=== PATIENT | female | born 1990 | race Hispanic/Latino ===

== ENCOUNTER 2016-12-11 22:04 | Observation (INO) | payer BC, OTHER ==
--- NOTE | 2016-12-11 22:57 | ED PDOC ---
Arrival/HPI - General Historian: Patient - History of Present Illness Time/Duration: 24 hours <Niles Osman - Last Filed: 12/12/16 00:41> <Nicholas Beltre - Last Filed: 12/12/16 00:55> - General Chief Complaint: Bite Time Seen by Provider: 12/11/16 22:11 - History of Present Illness Narrative History of Present Illness (Text): 12/11/16 22:51 26 year old female with no significant past medical history presents with right wrist erythema and swelling. Patient reports waking up this morning at 10am noticed redness and swelling on her right wrist. Patient tried taking over the counter antihistamine without relief. The redness and swelling area continue to expand throughout to her fingers and forearm. Patient denies having pain or itchiness in the area. Two months prior, patient had similar symptoms on her ankle, but it resolved after taking antihistamine. Patient denies alcohol , tobacco, or drug use. She denies having allergies to food or medications. She further denies headache, fever, chills, shortness of breath, chest pain, nausea or vomiting. (Niles Osman) Past Medical History - Provider Review Nursing Documentation Reviewed: Yes - Past History Past History: No Previous - Psychiatric Hx Substance Use: No - Anesthesia Hx Anesthesia: Yes Hx Anesthesia Reactions: No Hx Malignant Hyperthermia: No <Niles Osman - Last Filed: 12/12/16 00:41> Family/Social History - Physician Review Nursing Documentation Reviewed: Yes Family/Social History: No Known Family HX Smoking Status: Never Smoked Hx Alcohol Use: Yes Frequency of alcohol use: Socially Hx Substance Use: No <Niles Osman - Last Filed: 12/12/16 00:41> Allergies/Home Meds <Niles Osman - Last Filed: 12/12/16 00:41> <Nicholas Beltre - Last Filed: 12/12/16 00:55> Allergies/Adverse Reactions: Allergies No Known Allergies Allergy (Verified 12/11/16 22:48) Home Medications: Home Meds Medication Instructions Recorded Confirmed No Known Home Med 12/11/16 12/11/16 Review of Systems - Physician Review All systems were reviewed & negative as marked: Yes - Review of Systems Constitutional: Normal. absent: Fatigue, Weight Change, Fevers Eyes: Normal. absent: Vision Changes, Photophobia ENT: Normal. absent: Hearing Changes, Rhinorrhea, Epistaxis Respiratory: Normal. absent: SOB, Cough, Wheezing Cardiovascular: Normal. absent: Chest Pain, Palpitations, Syncope Gastrointestinal: Normal. absent: Abdominal Pain, Diarrhea, Nausea, Vomiting Genitourinary Female: Normal. absent: Dysuria, Frequency Musculoskeletal: Normal, Joint Swelling (right wrist swelling). absent: Arthralgias, Back Pain, Neck Pain Skin: Other (left UE erythema and swelling). absent: Pruritis Neurological: Normal. absent: Headache, Dizziness Endocrine: Normal. absent: Diaphoresis Hemo/Lymphatic: Normal Psychiatric: Normal. absent: Anxiety, Depression <Niles Osman - Last Filed: 12/12/16 00:41> Physical Exam Vital Signs Reviewed: Yes Temperature: Afebrile Blood Pressure: Normal Pulse: Regular Respiratory Rate: Normal Appearance: Positive for: Well-Appearing, Non-Toxic, Comfortable Pain Distress: None Mental Status: Positive for: Alert and Oriented X 3 - Systems Exam Head: Present: Atraumatic, Normocephalic Pupils: Present: PERRL Extroacular Muscles: Present: EOMI Conjunctiva: Present: Normal Mouth: Present: Moist Mucous Membranes Neck: Present: Normal Range of Motion Respiratory/Chest: Present: Clear to Auscultation, Good Air Exchange. No: Respiratory Distress, Accessory Muscle Use Cardiovascular: Present: Regular Rate and Rhythm, Normal S1, S2. No: Murmurs Abdomen: Present: Normal Bowel Sounds. No: Tenderness, Distention, Peritoneal Signs Upper Extremity: Present: NORMAL PULSES, Swelling (right hand), Erythema (right hand), Neurovascularly Intact, Temperature Abnormalties (warm right hand), Other (3 small bumps on the medial side of right wrist). No: Tenderness Lower Extremity: Present: Normal Inspection. No: Edema Neurological: Present: GCS=15, CN II-XII Intact, Speech Normal Skin: Present: Warm, Dry, Other (erythematous and swelling on left hand extending up to forearm) Psychiatric: Present: Alert, Oriented x 3, Normal Insight, Normal Concentration <Niles Osman - Last Filed: 12/12/16 00:41> Medical Decision Making - Lab Interpretations I have reviewed the lab results: Yes <Niles Osman - Last Filed: 12/12/16 00:41> - Lab Interpretations I have reviewed the lab results: Yes <Nicholas Beltre - Last Filed: 12/12/16 00:55> ED Course and Treatment: 12/11/16 23:19 -CBC, CMP -Ice compression -reassess and disposition DDx: Cellulitis, Insect bite, allergic reaction 12/12/16 00:10 Patient's symptoms not improving. Blood culture, solu-medrol IV Abx and Benadryl ordered. 12/12/16 00:29 Discussed case with hospitalist Dr. Paez, agreed to med/surg observation. (Niles Osman) Impression: Pt seen and evaluated with behavioral medical director. Pt presented of some left wrist redness and swelling spreading up her forearm since this morning. Pt took anti- histamines at home without relief. Aware and agree with HPI, clinical findings, plan, and management. Plan: -- Labs -- Ice compress -- Reassess and disposition 12/12/16 00:[address] Paez, who is aware and agrees with plan. Accepts pt in to hospitalist service. Pt will go to [facility] observation for cellulitis and allergic reaction. residential sales executive notified. (Nicholas Beltre) - Lab Interpretations Lab Results: 12/11/16 23:20 12/11/16 23:20 Lab Results 12/11/16 23:20: Sodium 141, Potassium 3.6, Chloride 104, Carbon Dioxide 27, Anion Gap 14, BUN 14, Creatinine 0.5, Est GFR ( Amer) > 60, Est GFR (Non- Af Amer) > 60, Random Glucose 71, Calcium 8.7, Total Bilirubin 0.4, AST 19, ALT 23, Alkaline Phosphatase 51, Total Protein 7.3, Albumin 4.2, Globulin 3.1, Albumin/Globulin Ratio 1.4 12/11/16 23:20: WBC 9.2, RBC 4.43, Hgb 13.4, Hct 39.3, MCV 88.7, MCH 30.2, MCHC 34.1, RDW 13.2, Plt Count 230, MPV 11.4 H, Gran % 56.9, Lymph % (Auto) 32.1, [place] % (Auto) 7.3 H, Eos % (Auto) 3.5, Baso % (Auto) 0.2, Gran # 5.22, Lymph # 3.0, [place] # 0.7 H, Eos # 0.3, Baso # 0.02 - Medication Orders Current Medication Orders: Vancomycin HCl (Vancomycin 1gm) 1 gm in 250 mls @ 167 mls/hr IVPB STAT STA PRN Reason: Protocol Stop: 12/12/16 01:39 Discontinued Medications Diphenhydramine HCl (Benadryl) 25 mg IVP STAT STA Stop: 12/12/16 00:12 Piperacillin Sod/Tazobactam Sod (Zosyn 3.375 In Ns 100ml) 100 mls @ 200 mls/hr IVPB STAT STA PRN Reason: Protocol Stop: 12/12/16 00:38 Methylprednisolone (Solu-Medrol) 125 mg IVP STAT STA Stop: 12/12/16 00:11 - PA / SOUNDSCRIBER MECHANIC / Resident Statement GRACIELA has reviewed & agrees with the documentation as recorded. GRACIELA has examined the patient and agrees with the treatment plan. <Niles Osman - Last Filed: 12/12/16 00:41> - PA / SOUNDSCRIBER MECHANIC / Resident Statement GRACIELA has reviewed & agrees with the documentation as recorded. GRACIELA has examined the patient and agrees with the treatment plan. <Nicholas Beltre - Last Filed: 12/12/16 00:55> Disposition/Present on Arrival - Present on Arrival Any Indicators Present on Arrival: No History of DVT/PE: No History of Uncontrolled Diabetes: No Urinary Catheter: No History of Decub. Ulcer: No History Surgical Site Infection Following: None - Disposition Have Diagnosis and Disposition been Completed?: Yes Disposition Time: 00:27 Patient Plan: Observation <Niles Osman - Last Filed: 12/12/16 00:41> <Nicholas Beltre - Last Filed: 12/12/16 00:55> - Disposition Diagnosis: Cellulitis, Allergic reaction Disposition: HOSPITALIZED Patient Problems: Current Active Problems Problem Status Onset Cellulitis Acute Condition: STABLE Discharge Instructions (ExitCare): Cellulitis (ED) Referrals: Gustavo Abraham MD [Primary Care Provider] - Follow up with primary
[2016-12-11 23:44] LABS: ALB/GLOB RATIO 1.4 (1.1-1.8); ALBUMIN 4.2 g/dL (3.0-4.8); ALT/SGPT 23 U/L (7-56); AST/SGOT 19 U/L (15-39); BLOOD UREA NITROGEN 14 mg/dL (7-21); CALCIUM 8.7 mg/dL (8.4-10.5); GFR AFRICAN-AMERICAN > 60; GFR NON-AFRICAN AMERICAN > 60
[2016-12-11 23:45] LABS: BASO # 0.02 K/mm3 (0.0-2.0); BASO % 0.2 % (0.0-3.0); EOS # 0.3 (0.0-0.7); EOS % 3.5 % (1.5-5.0); GRAN # 5.22 (1.4-6.5); GRAN % 56.9 % (50.0-68.0); HEMOGLOBIN 13.4 gm/dL (12.0-16.0); LYMPH % 32.1 % (22.0-35.0); MEAN CELL VOLUME 88.7 fL (80.0-105.0); MEAN CORPUSCULAR HEMOGLOBIN 30.2 pg (25.0-35.0); MEAN CORPUSCULAR HGB CONC 34.1 g/dl (31.0-37.0); MEAN PLATELET VOLUME 11.4 fl (7.0-11.0); MONO # 0.7 (0.1-0.6); MONO % 7.3 % (1.0-6.0); PLATELET COUNT 230 10^3/uL (120.0-450.0); RBC 4.43 10^6/uL (3.5-6.1); RED CELL DISTRIBUTION WIDTH 13.2 % (11.5-14.5); WHITE BLOOD COUNT 9.2 10^3/ul (4.5-11.0)
[2016-12-12] MEDS ORDERED: Piperacillin/Tazobact 3.375 gm 100 ML IVPB STA (00:09)
[2016-12-12] MEDS ORDERED: Vancomycin 1gm in NS 250ml 1 GM/250 ML BAG IVPB STA (00:10)
[2016-12-12] MEDS ORDERED: DiphenhydrAMINE 50 mg/ml Inj IVP STA (00:11)
[2016-12-12] MEDS ORDERED: DiphenhydrAMINE 50 mg/ml Inj IVP PRN (01:15)
[2016-12-12] MEDS: Piperacillin/Tazobact 3.375 gm 100 ML IVPB SCH ×2 (06:17→11:36)
--- NOTE | 2016-12-12 06:30 | CP.PCM.HP ---
<TRISTIN BENITEZ - Last Filed: 12/12/16 06:19> History of Present Illness - History of Present Illness History of Present Illness: Tristin Mignon OHARA PGY1 - Internal Medicine H&P - Night Float Service CC: Insect bite, hand swelling HPI: 26 yo F with no PMH presented to [facility] ED complaining of a swollen and red hand after a presumed insect bite earlier in the day. Patient woke up 10AM with slight swelling of her R wrist, she did not see the insect that bit her, but saw the shahana on her skin. Swelling increased throughout the day. She tried taking an antihistamine, unsure exactly of the name, but did not notice any improvement. She now had swelling, redness streaking up to axilla, numbness, and difficulty flexing her right hand, but no pain. She denies any F/C, N/V/D/C , abdominal pain , CP, SOB, dyspnea, throat swelling, wheezing, tongue swelling. Denies any contacts with similar bites. PMH: None PSH: None Meds: None Soc: Denies tobacco. EtOH socially. Denies illicits Allergies: NKDA Present on Admission - Present on Admission Any Indicators Present on Admission: No History of DVT/PE: No Review of Systems - Constitutional Constitutional: absent: Anorexia, Chills, Fever, Headache - EENT Eyes: absent: Blurred Vision, Change in Vision Ears: absent: Decreased Hearing, Ear Pain, Tinnitus Nose/Mouth/Throat: absent: Epistaxis, Nasal Congestion, Odynophagia, Throat Swelling, Tongue Swelling - Cardiovascular Cardiovascular: absent: Chest Pain, Diaphoresis, Dyspnea, Leg Edema, Palpitations - Respiratory Respiratory: absent: Cough, Dyspnea, Stridor - Gastrointestinal Gastrointestinal: absent: Abdominal Pain, Constipation, Diarrhea - Genitourinary Genitourinary: absent: Dysuria - Musculoskeletal Musculoskeletal: absent: Arthralgias, Myalgias - Integumentary Integumentary: Changing Lesions, New Lesions, Rash, Swelling - Neurological Neurological: absent: Headaches - Psychiatric Psychiatric: absent: Behavioral Changes Past Patient History - Past Social History Smoking Status: Never Smoked - MUSCULOSKELETAL/RHEUMATOLOGICAL Hx Falls: No - PSYCHIATRIC Hx Substance Use: No - SURGICAL HISTORY Hx Surgeries: No - ANESTHESIA Hx Anesthesia: Yes Hx Anesthesia Reactions: No Hx Malignant Hyperthermia: No Meds Allergies/Adverse Reactions: Allergies Allergy/AdvReac Type Severity Reaction Status Date / Time No Known Allergies Allergy Verified 12/11/16 22:48 Physical Exam - Constitutional Appears: Non-toxic, No Acute Distress - Head Exam Head Exam: ATRAUMATIC, NORMOCEPHALIC - Eye Exam Eye Exam: EOMI, Normal appearance - ENT Exam ENT Exam: Mucous Membranes Moist - Neck Exam Neck exam: Positive for: Normal Inspection. Negative for: Lymphadenopathy - Respiratory Exam Respiratory Exam: Clear to Auscultation Bilateral. absent: Rales, Rhonchi, Wheezes - Cardiovascular Exam Cardiovascular Exam: RRR, +S1, +S2 - GI/Abdominal Exam GI & Abdominal Exam: Normal Bowel Sounds, Soft. absent: Tenderness - Extremities Exam Additional comments: RUE edema in hand, wrist, up to mid forearm. Erythema in hand and wrist, streaking erythema along ventral forearm to axilla. No axillary lymphadenopathy LUE normal - Back Exam Back exam: NORMAL INSPECTION - Neurological Exam Neurological exam: Alert, Oriented x3 - Psychiatric Exam Psychiatric exam: Normal Affect, Normal Mood - Skin Skin Exam: Dry, Intact Additional comments: See "Extremities exam" Results - Vital Signs Recent Vital Signs: Last Vital Signs Temp 98.1 F 12/12/16 01:45 Pulse 64 12/12/16 01:45 Resp 12 12/12/16 03:23 BP 115/52 L 12/12/16 01:45 Pulse Ox 99 12/12/16 01:45 - Labs Result Diagrams: 12/11/16 23:20 12/11/16 23:20 Assessment & Plan - Assessment and Plan (Free Text) Assessment: 26 yo F with no PMH presented with RUE swelling and erythema for the past day after a bug bite. Observe and treat for cellulitis. Plan: 1. RUE Cellulitis - Patient is afebrile with no leukocytosis. Arm is marked for extent of erythema. - Obtain blood culture, repeat CBC, CMP tomorrow - Start vancomycin and Zosyn - Continue to monitor clinically Patient seen, discussed, and reviewed with attending Dr. Paez <Luis Alfredo Paez - Last Filed: 12/18/16 03:55> Results - Vital Signs Recent Vital Signs: Last Vital Signs Temp 98.7 F 12/13/16 11:10 Pulse 90 12/13/16 11:10 Resp 20 12/13/16 11:10 BP 118/79 12/13/16 11:10 Pulse Ox 97 12/13/16 11:10 - Labs Result Diagrams: 12/13/16 06:00 12/13/16 06:00 Attending/Attestation - Attestation I have personally seen and examined this patient.: Yes I have fully participated in the care of the patient.: Yes I have reviewed all pertinent clinical information: Yes Notes (Text): 12/18/16 03:55 Agree with history, physical examination, assessment and plan.
[2016-12-12 07:57] LABS: GRAN # 7.68 (1.4-6.5); GRAN % 88.9 % (50.0-68.0); HEMOGLOBIN 14.5 gm/dL (12.0-16.0); LYMPH # 0.9 (1.2-3.4); LYMPH % 10.3 % (22.0-35.0); MEAN CELL VOLUME 88.1 fL (80.0-105.0); MEAN CORPUSCULAR HEMOGLOBIN 30.7 pg (25.0-35.0); MEAN CORPUSCULAR HGB CONC 34.9 g/dl (31.0-37.0); MEAN PLATELET VOLUME 11.7 fl (7.0-11.0); MONO # 0.1 (0.1-0.6); MONO % 0.8 % (1.0-6.0); PLATELET COUNT 217 10^3/uL (120.0-450.0); RBC 4.72 10^6/uL (3.5-6.1); RED CELL DISTRIBUTION WIDTH 13.1 % (11.5-14.5); WHITE BLOOD COUNT 8.6 10^3/ul (4.5-11.0)
[2016-12-12 08:28] LABS: ALB/GLOB RATIO 1.4 (1.1-1.8); ALBUMIN 4.1 g/dL (3.0-4.8); ALT/SGPT 25 U/L (7-56); AST/SGOT 18 U/L (15-39); BLOOD UREA NITROGEN 12 mg/dL (7-21); CALCIUM 8.6 mg/dL (8.4-10.5); GFR AFRICAN-AMERICAN > 60; GFR NON-AFRICAN AMERICAN > 60
[2016-12-12] MEDS ORDERED: Vancomycin 1gm in NS 250ml 1 GM/250 ML BAG IVPB SCH (10:00)
[2016-12-12 14:16] LABS: BARBITURATES, UR NEGATIVE (NEGATIVE); BENZODIAZEPINES, UR NEGATIVE (NEGATIVE); OPIATES, UR NEGATIVE (NEGATIVE); PHENCYCLIDINE, UR NEGATIVE (NEGATIVE)
[2016-12-12] MEDS: cefTRIAXone 1 gm 1 GM/100 ML BAG IVPB SCH (17:18)
[2016-12-13 07:10] LABS: BASO # 0.01 K/mm3 (0.0-2.0); BASO % 0.1 % (0.0-3.0); EOS # 0.2 (0.0-0.7); EOS % 2.1 % (1.5-5.0); GRAN # 5.69 (1.4-6.5); GRAN % 57.6 % (50.0-68.0); HEMOGLOBIN 12.5 gm/dL (12.0-16.0); LYMPH # 3.1 (1.2-3.4); LYMPH % 31.2 % (22.0-35.0); MEAN CELL VOLUME 88.5 fL (80.0-105.0); MEAN CORPUSCULAR HEMOGLOBIN 29.8 pg (25.0-35.0); MEAN CORPUSCULAR HGB CONC 33.7 g/dl (31.0-37.0); MEAN PLATELET VOLUME 11.6 fl (7.0-11.0); MONO # 0.9 (0.1-0.6); PLATELET COUNT 209 10^3/uL (120.0-450.0); RBC 4.19 10^6/uL (3.5-6.1); RED CELL DISTRIBUTION WIDTH 13.4 % (11.5-14.5); WHITE BLOOD COUNT 9.9 10^3/ul (4.5-11.0)
[2016-12-13 07:15] LABS: ALB/GLOB RATIO 1.3 (1.1-1.8); ALBUMIN 3.6 g/dL (3.0-4.8); ALT/SGPT 23 U/L (7-56); AST/SGOT 17 U/L (15-39); BLOOD UREA NITROGEN 15 mg/dL (7-21); CALCIUM 8.6 mg/dL (8.4-10.5); GFR AFRICAN-AMERICAN > 60; GFR NON-AFRICAN AMERICAN > 60
[2016-12-13] MEDS ORDERED: Potassium Chloride 40 mEq/30 ml LIQ UD PO STA (09:15)
[2016-12-13] MEDS ORDERED: Vancomycin 1gm in NS 250ml 1 GM/250 ML BAG IVPB SCH (10:00)
[2016-12-13] MEDS: cefTRIAXone 1 gm 1 GM/100 ML BAG IVPB SCH (10:26)
[2016-12-13 11:11] VITALS: BP 118/79; PULSE 90; RESP 20; TEMP 98.7; O2SAT 97
--- NOTE | 2016-12-13 11:58 | CP.PCM.CON ---
History of Present Illness - History of Present Illness History of Present Illness: 26 year old female with no significant past medical history came in to [facility] because of sudden onset of swelling and pain at the right wrist area associated with erythema, which apparently tracked up to her forearm. This started about 2 days ago, and she does not recall if something bit her. She denies specific animal contacts, no nausea or vomiting, no fever or chills, no diarrhea, no dysuria, no headache or dizziness. She took antihistamines which did not help. She was given antibiotics last night and this morning the swelling and pain are all gone. Infectious Diseases consult is requested to further evaluate and manage. Review of Systems - Review of Systems All systems: reviewed and no additional remarkable complaints except (as per HPI ) Past Patient History - Past Social History Smoking Status: Never Smoked - MUSCULOSKELETAL/RHEUMATOLOGICAL Hx Falls: No - PSYCHIATRIC Hx Substance Use: No - SURGICAL HISTORY Hx Surgeries: No - ANESTHESIA Hx Anesthesia: Yes Hx Anesthesia Reactions: No Hx Malignant Hyperthermia: No Meds Allergies/Adverse Reactions: Allergies Allergy/AdvReac Type Severity Reaction Status Date / Time No Known Allergies Allergy Verified 12/11/16 22:48 - Medications Medications: Current Medications Acetaminophen (Tylenol 325mg Tab) 650 mg PO Q6H PRN PRN Reason: pain Last Admin: 12/13/16 03:41 Dose: 650 mg Diphenhydramine HCl (Benadryl) 25 mg PO Q6 PRN PRN Reason: Itching / Pruritus Last Admin: 12/12/16 21:34 Dose: 25 mg Ceftriaxone Sodium (Rocephin 1 Gram Ivpb) 1 gm in 100 mls @ 100 mls/hr IVPB DAILY JEWEL PRN Reason: Protocol Last Admin: 12/12/16 17:18 Dose: 100 mls/hr Vancomycin HCl (Vancomycin 1gm) 1 gm in 250 mls @ 167 mls/hr IVPB Q12 JEWEL PRN Reason: Protocol Physical Exam - Constitutional Appears: Non-toxic, No Acute Distress - Head Exam Head Exam: NORMAL INSPECTION - ENT Exam ENT Exam: Mucous Membranes Moist - Neck Exam Neck exam: Negative for: Lymphadenopathy, Meningismus - Respiratory Exam Respiratory Exam: Decreased Breath Sounds - Cardiovascular Exam Cardiovascular Exam: +S1, +S2 - GI/Abdominal Exam GI & Abdominal Exam: Soft. absent: Tenderness - Extremities Exam Additional comments: right hand, arm without erythema, no swelling, no lymphadenopathy, no tenderness , no discharge Results - Vital Signs Recent Vital Signs: Last Vital Signs Temp 97.6 F 12/12/16 16:29 Pulse 73 12/12/16 16:29 Resp 18 12/12/16 16:29 BP 97/59 L 12/12/16 16:29 Pulse Ox 98 12/12/16 16:29 - Labs Result Diagrams: 12/13/16 06:00 12/13/16 06:00 Labs: Laboratory Results - last 24 hr 12/12/16 12/12/16 12/12/16 13:10 13:19 13:19 WBC RBC Hgb Hct MCV MCH MCHC RDW Plt Count MPV Gran % Lymph % (Auto) [place] % (Auto) Eos % (Auto) Baso % (Auto) Gran # Lymph # [place] # Eos # Baso # Sodium Potassium Chloride Carbon Dioxide Anion Gap BUN Creatinine Est GFR ( Amer) Est GFR (Non-Af Amer) Random Glucose Calcium Total Bilirubin AST ALT Alkaline Phosphatase Total Protein Albumin Globulin Albumin/Globulin Ratio Procalcitonin < 0.05 L Urine HCG, Qual Negative Urine Opiates Screen Negative Urine Methadone Screen Negative Ur Barbiturates Screen Negative Ur Phencyclidine Scrn Negative Ur Amphetamines Screen Negative U Benzodiazepines Scrn Negative U Oth Cocaine Metabols Negative U Cannabinoids Screen Negative 12/13/16 12/13/16 06:00 06:00 WBC 9.9 RBC 4.19 Hgb 12.5 Hct 37.1 MCV 88.5 MCH 29.8 MCHC 33.7 RDW 13.4 Plt Count 209 MPV 11.6 H Gran % 57.6 Lymph % (Auto) 31.2 [place] % (Auto) 9.0 H Eos % (Auto) 2.1 Baso % (Auto) 0.1 Gran # 5.69 Lymph # 3.1 [place] # 0.9 H Eos # 0.2 Baso # 0.01 Sodium 139 Potassium 3.4 L Chloride 106 Carbon Dioxide 24 Anion Gap 12 BUN 15 Creatinine 0.6 Est GFR ( Amer) > 60 Est GFR (Non-Af Amer) > 60 Random Glucose 92 Calcium 8.6 Total Bilirubin 0.4 AST 17 ALT 23 Alkaline Phosphatase 41 Total Protein 6.4 Albumin 3.6 Globulin 2.8 Albumin/Globulin Ratio 1.3 Procalcitonin Urine HCG, Qual Urine Opiates Screen Urine Methadone Screen Ur Barbiturates Screen Ur Phencyclidine Scrn Ur Amphetamines Screen U Benzodiazepines Scrn U Oth Cocaine Metabols U Cannabinoids Screen Assessment & Plan - Assessment and Plan (Free Text) Plan: Assessment S/P right hand, wrist, arm swelling, R/O cellulitis Plan Patient has been given Vancomycin and Rocephin; can be switched to PO Keflex and PO doxycycline with outpatient follow up with PMD
--- NOTE | 2016-12-13 18:36 | CP.PCM.DIS ---
<Demetri Irvin - Last Filed: 12/13/16 18:40> Provider - Provider Date of Admission: 12/12/16 00:27 Attending physician: Irvin Lloyd MD Primary care physician: Gusatvo Abraham MD Time Spent in preparation of Discharge (in minutes): 45 Hospital Course - Lab Results Lab Results: Micro Results 12/12/16 00:35 Blood Blood Culture - Preliminary NO GROWTH AFTER 24 HOURS Most Recent Lab Values WBC 9.9 10^3/ul (4.5-11.0) 12/13/16 06:00 RBC 4.19 10^6/uL (3.5-6.1) 12/13/16 06:00 Hgb 12.5 gm/dL (12.0-16.0) 12/13/16 06:00 Hct 37.1 % (36.0-48.0) 12/13/16 06:00 MCV 88.5 fL (80.0-105.0) 12/13/16 06:00 MCH 29.8 pg (25.0-35.0) 12/13/16 06:00 MCHC 33.7 g/dl (31.0-37.0) 12/13/16 06:00 RDW 13.4 % (11.5-14.5) 12/13/16 06:00 Plt Count 209 10^3/uL (120.0-450.0) 12/13/16 06:00 MPV 11.6 fl (7.0-11.0) H 12/13/16 06:00 Gran % 57.6 % (50.0-68.0) 12/13/16 06:00 Lymph % (Auto) 31.2 % (22.0-35.0) 12/13/16 06:00 [place] % (Auto) 9.0 % (1.0-6.0) H 12/13/16 06:00 Eos % (Auto) 2.1 % (1.5-5.0) 12/13/16 06:00 Baso % (Auto) 0.1 % (0.0-3.0) 12/13/16 06:00 Gran # 5.69 (1.4-6.5) 12/13/16 06:00 Lymph # 3.1 (1.2-3.4) 12/13/16 06:00 [place] # 0.9 (0.1-0.6) H 12/13/16 06:00 Eos # 0.2 (0.0-0.7) 12/13/16 06:00 Baso # 0.01 K/mm3 (0.0-2.0) 12/13/16 06:00 Sodium 139 mmol/L (132-148) 12/13/16 06:00 Potassium 3.4 mmol/L (3.6-5.0) L 12/13/16 06:00 Chloride 106 mmol/L (98-107) 12/13/16 06:00 Carbon Dioxide 24 mmol/L (21-33) 12/13/16 06:00 Anion Gap 12 (10-20) 12/13/16 06:00 BUN 15 mg/dL (7-21) 12/13/16 06:00 Creatinine 0.6 mg/dL (0.5-1.4) 12/13/16 06:00 Est GFR ( Amer) > 60 12/13/16 06:00 Est GFR (Non-Af Amer) > 60 12/13/16 06:00 Random Glucose 92 mg/dL (70-110) 12/13/16 06:00 Calcium 8.6 mg/dL (8.4-10.5) 12/13/16 06:00 Total Bilirubin 0.4 mg/dL (0.2-1.3) 12/13/16 06:00 AST 17 U/L (15-39) 12/13/16 06:00 ALT 23 U/L (7-56) 12/13/16 06:00 Alkaline Phosphatase 41 U/L (38-133) 12/13/16 06:00 Total Protein 6.4 g/dL (5.8-8.3) 12/13/16 06:00 Albumin 3.6 g/dL (3.0-4.8) 12/13/16 06:00 Globulin 2.8 gm/dL 12/13/16 06:00 Albumin/Globulin Ratio 1.3 (1.1-1.8) 12/13/16 06:00 Procalcitonin < 0.05 NG/ML (0.19-0.49) L 12/12/16 13:10 Urine HCG, Qual Negative (NEGATIVE) 12/12/16 13:19 Urine Opiates Screen Negative (NEGATIVE) 12/12/16 13:19 Urine Methadone Screen Negative (NEGATIVE) 12/12/16 13:19 Ur Barbiturates Screen Negative (NEGATIVE) 12/12/16 13:19 Ur Phencyclidine Scrn Negative (NEGATIVE) 12/12/16 13:19 Ur Amphetamines Screen Negative (NEGATIVE) 12/12/16 13:19 U Benzodiazepines Scrn Negative (NEGATIVE) 12/12/16 13:19 U Oth Cocaine Metabols Negative (NEGATIVE) 12/12/16 13:19 U Cannabinoids Screen Negative (NEGATIVE) 12/12/16 13:19 - Hospital Course Hospital Course: 26 yo F with no PMH presented to [facility] [place] ED complaining of a swollen and red hand after a presumed insect bite earlier in the day on 12/11/16. Patient woke up 10AM with slight swelling of her R wrist, she did not see the insect that bit her, but saw the shahana on her skin. Swelling increased throughout the day. She tried taking an antihistamine, unsure exactly of the name, but did not notice any improvement. She now had swelling, redness streaking up to axilla, numbness , and difficulty flexing her right hand, but no pain. She denied any F/C, N/V/D/ C, abdominal pain , CP, SOB, dyspnea, throat swelling, wheezing, tongue swelling. Denied any contacts with similar bites. She was seen again on , and further denied nausea or vomiting, no fever or chills, no diarrhea, no dysuria, no headache or dizziness. She was given antihistamines and Abx, and that morning the swelling and pain are all gone. Infectious Diseases consult was requested to further evaluate and manage, and when she was seen this morning (12/13/16), the infection had greatly resolved. - Date & Time of H&P Date of H&P: 12/12/16 Time of H&P: 06:20 Discharge Exam - Head Exam Head Exam: NORMAL INSPECTION - Additional Findings Additional findings: VS as below Constitutional: a&o x 4, nad Head and Neck: neck supple, no jvd, trachea midline, carotid midline, no cervical/head mass Eyes: terri, nonicteric sclera, eom intact ENT: auditory acuity grossly intact, throat not congested, no nasal deformity Cardio: rrr, no m/r/g, no carotid bruit, nml s1, s2 Pulm: no accessory muscle use, equal nml breath sounds bilaterally, ctab Abd:; s/nt/nd, nbs x 4 q, no palpable masses Derm: no rashes, no ulcers, no lesions Extr: no edema, no cyanosis, no calf tenderness, no lesions, no varicosities Neuro: cn II-XII grossly intact, muscle strength 5/5, no los, DTRs intact Discharge Plan - Discharge Medications Prescriptions: Amoxicillin/Clavulanate [Augmentin 875 MG-125 MG] 1 tab PO BID #14 tab Doxycycline Hyclate [Doryx] 100 mg PO Q12 #14 cap - Follow Up Plan Condition: STABLE Disposition: HOME/ ROUTINE Patient education suggested?: Yes Instructions: Cellulitis (DC), Cellulitis (GEN) Additional Instructions: 1. Follow up with PMD DR. Abraham in 1 week. 2. Take Antibiotics as prescribed. 3. If symptoms recur, come back to the ED. Referrals: Gustavo Abraham MD [Primary Care Provider] - <Irvin Lloyd - Last Filed: 12/14/16 12:17> Provider - Provider Date of Admission: 12/12/16 00:27 Attending physician: Irvin Lloyd MD Primary care physician: Gustavo Abraham MD Hospital Course - Lab Results Lab Results: Micro Results 12/12/16 00:35 Blood Blood Culture - Preliminary NO GROWTH AFTER 48 HOURS Most Recent Lab Values WBC 9.9 10^3/ul (4.5-11.0) 12/13/16 06:00 RBC 4.19 10^6/uL (3.5-6.1) 12/13/16 06:00 Hgb 12.5 gm/dL (12.0-16.0) 12/13/16 06:00 Hct 37.1 % (36.0-48.0) 12/13/16 06:00 MCV 88.5 fL (80.0-105.0) 12/13/16 06:00 MCH 29.8 pg (25.0-35.0) 12/13/16 06:00 MCHC 33.7 g/dl (31.0-37.0) 12/13/16 06:00 RDW 13.4 % (11.5-14.5) 12/13/16 06:00 Plt Count 209 10^3/uL (120.0-450.0) 12/13/16 06:00 MPV 11.6 fl (7.0-11.0) H 12/13/16 06:00 Gran % 57.6 % (50.0-68.0) 12/13/16 06:00 Lymph % (Auto) 31.2 % (22.0-35.0) 12/13/16 06:00 [place] % (Auto) 9.0 % (1.0-6.0) H 12/13/16 06:00 Eos % (Auto) 2.1 % (1.5-5.0) 12/13/16 06:00 Baso % (Auto) 0.1 % (0.0-3.0) 12/13/16 06:00 Gran # 5.69 (1.4-6.5) 12/13/16 06:00 Lymph # 3.1 (1.2-3.4) 12/13/16 06:00 [place] # 0.9 (0.1-0.6) H 12/13/16 06:00 Eos # 0.2 (0.0-0.7) 12/13/16 06:00 Baso # 0.01 K/mm3 (0.0-2.0) 12/13/16 06:00 Sodium 139 mmol/L (132-148) 12/13/16 06:00 Potassium 3.4 mmol/L (3.6-5.0) L 12/13/16 06:00 Chloride 106 mmol/L (98-107) 12/13/16 06:00 Carbon Dioxide 24 mmol/L (21-33) 12/13/16 06:00 Anion Gap 12 (10-20) 12/13/16 06:00 BUN 15 mg/dL (7-21) 12/13/16 06:00 Creatinine 0.6 mg/dL (0.5-1.4) 12/13/16 06:00 Est GFR ( Amer) > 60 12/13/16 06:00 Est GFR (Non-Af Amer) > 60 12/13/16 06:00 Random Glucose 92 mg/dL (70-110) 12/13/16 06:00 Calcium 8.6 mg/dL (8.4-10.5) 12/13/16 06:00 Total Bilirubin 0.4 mg/dL (0.2-1.3) 12/13/16 06:00 AST 17 U/L (15-39) 12/13/16 06:00 ALT 23 U/L (7-56) 12/13/16 06:00 Alkaline Phosphatase 41 U/L (38-133) 12/13/16 06:00 Total Protein 6.4 g/dL (5.8-8.3) 12/13/16 06:00 Albumin 3.6 g/dL (3.0-4.8) 12/13/16 06:00 Globulin 2.8 gm/dL 12/13/16 06:00 Albumin/Globulin Ratio 1.3 (1.1-1.8) 12/13/16 06:00 Procalcitonin < 0.05 NG/ML (0.19-0.49) L 12/12/16 13:10 Urine HCG, Qual Negative (NEGATIVE) 12/12/16 13:19 Urine Opiates Screen Negative (NEGATIVE) 12/12/16 13:19 Urine Methadone Screen Negative (NEGATIVE) 12/12/16 13:19 Ur Barbiturates Screen Negative (NEGATIVE) 12/12/16 13:19 Ur Phencyclidine Scrn Negative (NEGATIVE) 12/12/16 13:19 Ur Amphetamines Screen Negative (NEGATIVE) 12/12/16 13:19 U Benzodiazepines Scrn Negative (NEGATIVE) 12/12/16 13:19 U Oth Cocaine Metabols Negative (NEGATIVE) 12/12/16 13:19 U Cannabinoids Screen Negative (NEGATIVE) 12/12/16 13:19 Attending/Attestation - Attestation I have personally seen and examined this patient.: Yes I have fully participated in the care of the patient.: Yes I have reviewed all pertinent clinical information, including history, physical exam and plan: Yes Notes (Text): 12/14/16 12:14 Attending note; Patient seen and examined with resident. patient is a 26-year-old female admitted with right hand cellulitis. Possible bug bite suspected. Patient treated with IV vancomycin and Rocephin. ID evaluation appreciated. Patient will be discharged with po Keflex and doxycycline. Follow up with PMD Dr. Abraham. Diagnosis: right hand cellulitis 12/14/16 12:17
[2016-12-13] MEDS ORDERED: Amoxicillin-Clav 875-125 mg Tab PO SCH (22:00)
== END 2016-12-13 16:14 | disposition home or self-care (01) ==
LOC: ED 22:04 → ERH 12-12 00:27 → 3RSO 12-12 02:40
PROVIDERS: ADMIT Internal Medicine; ATTEND Internal Medicine
DX: L03.113 Cellulitis of right upper limb (principal); W57.XXXA Bitten or stung by nonvenomous insect and other nonvenomous arthropods, initial encounter
CPT/HCPCS: 36415; 80053; 84145; 84703; 85025; 87040; 96365; 96366; 96367; 96368; 96375; 96376; 99284; G0378; G0480; J0696; J1200; J2543; J2930; J3480